=== PATIENT | female | born 2000 | race Caucasian/White ===

== ENCOUNTER 2020-02-25 20:57 | Emergency (ER) | payer BC ==
--- NOTE | 2020-02-25 21:23 | EDM.PDOC ---
ED HPI GENERAL MEDICAL PROBLEM - General Chief Complaint: Lower Extremity Injury/Pain Stated Complaint: RT LEG SWELLING AND SORE TO TOUCH Time Seen by Provider: 02/25/20 21:04 Source of Information: Reports: Patient, RN Notes Reviewed History Limitations: Reports: No Limitations - History of Present Illness INITIAL COMMENTS - FREE TEXT/NARRATIVE: Patient is a 20-year-old female who presents to the ED for the evaluation of her right leg swelling, redness and soreness. Patient states that this is been present for around 5 days now she is noticed some swelling on and off. But the redness and soreness developed today. This is on her medial calf, and does seem to be spreading toward the midline on the anterior surface of her lower leg. Patient states that she can still move her leg without much issue, she denies any trauma to the area. Patient states that it is hard to sleep at night , when she lays on her side as the pressure seems to be too much or cause her too much pain. She did take Advil for pain management, 2 tabs yesterday morning , this does seem to help a little bit. Patient states that she has not had any fevers or chills, chest pain or shortness of breath, or any other sick-like symptoms. Patient states that she is on control, but is not a smoker. Patient further denies any trauma to the area. 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 ED EXAM, GENERAL - Physical Exam Exam: See Below Exam Limited By: No Limitations General Appearance: Alert, WD/WN, No Apparent Distress Respiratory/Chest: No Respiratory Distress, Lungs Clear, Normal Breath Sounds, No Accessory Muscle Use, Chest Non-Tender Cardiovascular: Normal Peripheral Pulses, Regular Rate, Rhythm, No Murmur Peripheral Pulses: 3+: Dorsalis Pedis (L), Dorsalis Pedis (R) Extremities: Normal Range of Motion, Normal Capillary Refill, Pedal Edema (2+ edema noted to right leg/ankle), Leg Pain (in area of concern in right medial calf), Increased Warmth (in area of concern in right medial calf), Redness (in area of concern in right medial calf) Neurological: Alert, Oriented, Normal Cognition, No Motor/Sensory Deficits Psychiatric: Normal Affect, Normal Mood Skin Exam: Warm, Dry, Intact, No Rash, Erythema (area of roughly 20 x 10 cm to midline to medial right anterior calf), Increased Warmth (midline to medial anterior right calf.). No: Wound/Incision Course - Vital Signs Last Recorded V/S: Last Vital Signs Temp 97.4 F 02/25/20 21:06 Pulse 117 H 02/25/20 21:06 Resp 18 02/25/20 21:06 BP 141/98 H 02/25/20 21:06 Pulse Ox 99 02/25/20 21:06 - Orders/Labs/Meds Orders: Active Orders 24 hr Category Date Time Status VL Duplex Lwr Ext Veins Ltd Rt [US] Stat Exams 02/25/20 21:10 Ordered Labs: Laboratory Tests 02/25/20 02/25/20 Range/Units 21:33 21:33 WBC 8.43 (3.98-10.04) K/mm3 RBC 4.21 (3.98-5.22) M/mm3 Hgb 12.4 (11.2-15.7) gm/dl Hct 37.5 (34.1-44.9) % MCV 89.1 (79.4-94.8) fl MCH 29.5 (25.6-32.2) pg MCHC 33.1 (32.2-35.5) g/dl RDW Std Deviation 39.8 (36.4-46.3) fL Plt Count 316 (182-369) K/mm3 MPV 8.8 L (9.4-12.3) fl Neut % (Auto) 50.7 (34.0-71.1) % Lymph % (Auto) 37.0 (19.3-51.7) % [place] % (Auto) 8.4 (4.7-12.5) % Eos % (Auto) 3.4 (0.7-5.8) Baso % (Auto) 0.4 (0.1-1.2) % Neut # (Auto) 4.27 (1.56-6.13) K/mm3 Lymph # (Auto) 3.12 (1.18-3.74) K/mm3 [place] # (Auto) 0.71 H (0.24-0.36) K/mm3 Eos # (Auto) 0.29 (0.04-0.36) K/mm3 Baso # (Auto) 0.03 (0.01-0.08) K/mm3 C-Reactive Protein 5.1 H* (<1.0) mg/dL - Re-Assessments/Exams Free Text/Narrative Re-Assessment/Exam: 02/25/20 21:26 Patient presents to the ED for evaluation of her swollen and painful. Ultrasound will be obtained to rule out the possibility of a DVT, labs to be performed are CBC and a CRP for further evaluation. 02/25/20 22:01 Patient's white blood cell count is not elevated, her CRP is elevated at 5.1, which would suggest inflammation of sorts. 02/25/20 22:35 The ultrasound demonstrates a questionable area of a DVT in the right posterior tibial vein with questionable/not so good visualization of the calf veins. No other proximal DVT is noted. Patient was made aware of these results, and she would tentatively like to start on blood thinners. She states that she is to have dental surgery on Thursday, I told her to hold off on starting these medications until she can talk with her dental provider to give her further guidance and if he like to have her hold off until after the procedures. I told her she may start aspirin over the next 2 days if she like, I did talk with Dr. Mildred about these results, and he told me due to it being a distal DVT, that anticoagulation is not necessarily indicated, but can be started if the patient should desire to do so. Departure - Departure Time of Disposition: 22:45 Disposition: Home, Self-Care 01 Condition: Good Clinical Impression: Deep vein thrombosis (DVT) of calf muscle vein of right lower extremity Qualifiers: Chronicity: acute Qualified Code(s): I82.461 - Acute embolism and thrombosis of right calf muscular vein - Discharge Information *PRESCRIPTION DRUG MONITORING PROGRAM REVIEWED*: No *COPY OF PRESCRIPTION DRUG MONITORING REPORT IN PATIENT [place]: No Instructions: Bleeding Precautions When on Anticoagulant Therapy, Adult, Venous Thromboembolism Prevention Referrals: PCP,None [Primary Care Provider] - Forms: ED Department Discharge Additional Instructions: You were evaluated in the ER today for your right lower leg swelling, redness, tenderness. Ultrasound did demonstrate a questionable DVT within your right calf veins. You have been provided with a prescription for a blood thinner called Xarelto, dosing is 1 tablet 2 times a day for 21 days, and then you will need to switch to 1 tablet once a day after the initial 21 days is done. You have been provided with a prescription for the initial 21 days. Your prescription was electronically sent to [facility] located near [facility], this pharmacy is only open from 12 to 4 PM on Sundays, you will need to go there during this timeframe to obtain this medication and take as prescribed. Highly recommend you hold off on taking these medications, until you can talk to your dental provider who is going to do your surgery this coming Thursday on if they want you to be on a blood thinner or not. Due to this being a blood clot in your calf, there is a less emergent need to start anticoagulation therapy, sometimes he is resolved on their own. Nonetheless I do highly recommend you follow-up with a regular care provider, please call our clinic to set up care with a family practice provider. , Rj Damian NP, Zoey Rashid NP, Dorcas Alberto NP are all fairly new providers and should be able to have openings in their schedule to get you in sooner rather than later. Please monitor your symptoms, if you should develop any sudden increased shortness of breath, increased redness/swelling/pain, fever/chills, recommend you come to the ER for immediate evaluation to rule out any worrisome abnormalities. Please return to the ER at any time if symptoms should change or worsen. Sepsis Event Note (ED) - Evaluation Sepsis Screening Result: No Definite Risk - Focused Exam Vital Signs: Vital Signs Temp Pulse Resp BP Pulse Ox 02/25/20 21:06 97.4 F 117 H 18 141/98 H 99 - My Orders Last 24 Hours: My Active Orders 02/25/20 21:10 VL Duplex Lwr Ext Veins Ltd Rt [US] Stat - Assessment/Plan Last 24 Hours: My Active Orders 02/25/20 21:10 VL Duplex Lwr Ext Veins Ltd Rt [US] Stat
--- NOTE | 2020-02-26 10:27 | US ---
Right lower extremity deep venous ultrasound: Duplex and color Doppler evaluation was obtained of the right common femoral, proximal greater saphenous, superficial femoral, popliteal, posterior tibial and peroneal veins. Left common femoral vein was also evaluated. Findings: Right peroneal vein not visualized. Right posterior tibial vein incompletely seen although there does appear to be a small amount of thrombus being present. Other veins show normal phasic flow, augmentation and compression. 4 cm finding within the right groin possibly due to fatty containing lymph node. Impression: 1. Minimal thrombus suspected within the right posterior tibial vein. 2. No other findings of deep venous thrombosis within the right lower extremity or left common femoral vein. 3. Probable fatty containing lymph node within the right groin. Diagnostic code #3 Agree with preliminary report issued by [facility] ([facility] preliminary report dictated on 02/25/20, 11:22 PM Central Daylight Time) Study was dictated in MDT
== END 2020-02-25 23:10 | disposition home or self-care (01) ==
LOC: JD.ED 20:57
DX: I82.461 Acute embolism and thrombosis of right calf muscular vein (principal); J45.909 Unspecified asthma, uncomplicated; Z79.01 Long term (current) use of anticoagulants
CPT/HCPCS: 36415; 85025; 86140; 93971-26-RT; 93971-RT; 99282; 99284-25